=== PATIENT | male | born 1985 | race Caucasian/White ===

== ENCOUNTER 2020-02-24 09:27 | Emergency (ER) | payer OTHER, SELFPAY ==
[~2020-02-24] VITALS: Ht 175.3 cm; Wt 102.1 kg
[2020-02-24 09:37] VITALS: BP 133/71
--- NOTE | 2020-02-24 09:40 | NUR ---
Patient in tent for covid precaution
--- NOTE | 2020-02-24 09:44 | NUR ---
34 y/o male from home c/o body aches, fever, and loss of smell x 3 days. Denies cough/sob/chest pain. RR even and unlabored. States he took tylenol and nyquil for pain with minimal relief. + covid contact on 02/18. VSS medhx: denies
--- NOTE | 2020-02-24 09:55 | NUR ---
Covid swab collected and walked to lab.
[2020-02-24 10:23] VITALS: BP 133/71
--- NOTE | 2020-02-24 10:24 | NUR ---
Patient discharged with v/s stable. Written and verbal after care instructions given and explained. Patient verbalized understanding. Ambulatory with steady gait. All questions addressed prior to discharge. Advised to follow up with PMD.
--- NOTE | 2020-02-25 17:07 | NUR ---
Covid results received from lab. Results = POSITIVE. Hard copy requested from lab and placed in infection controls mailbox.
== END 2020-02-24 10:24 | disposition home or self-care (01) ==
LOC: MED 09:27
DX: U07.1 COVID-19 (principal); R03.0 Elevated blood-pressure reading, without diagnosis of hypertension
CPT/HCPCS: 99283; U0003